=== PATIENT | male | born 1985 | race Caucasian/White ===

== ENCOUNTER 2020-06-29 23:33 | Emergency (ER) | payer BC ==
[~2020-06-29] VITALS: Ht 180.3 cm; Wt 114.2 kg
[2020-06-29 23:55] VITALS: BP 148/95
== END 2020-06-30 00:19 | disposition home or self-care (01) ==
LOC: ER 23:34
DX: Z20.3 Contact with and (suspected) exposure to rabies (principal)
CPT/HCPCS: 99281